=== PATIENT | male | born 1950 | race Caucasian/White ===

== ENCOUNTER 2023-08-11 08:45 | Observation (INO) | payer MEDICARE, MEDICAID ==
[~2023-08-11] VITALS: Ht 170.2 cm; Wt 82.6 kg
[2023-08-11 09:12] VITALS: BP 183/100; PULSE 85; RESP 18; TEMP 99; O2SAT 96
[2023-08-11 09:30] VITALS: O2SAT 96
[2023-08-11 09:44] LABS: BASOPHILS # (AUTO) 0.1 K/uL (0.00-0.22); EOSINOPHILS # (AUTO) 0.1 K/uL (0-0.4); EOSINOPHILS % (AUTO) 1.9 % (0.0-4.0); HEMATOCRIT 36.7 % (36-52); HEMOGLOBIN 11.9 g/dL (12.0-18.0); LYMPHOCYTES # (AUTO) 1.1 K/uL (2.0-11.5); LYMPHOCYTES % (AUTO) 16.8 % (20.5-51.1); MEAN CORPUSCULAR HEMOGLOBIN 25 pg (27-31); MEAN CORPUSCULAR HGB CONC 33 g/dL (33-37); MEAN CORPUSCULAR VOLUME 76.5 fL (80-94); MONOCYTES # (AUTO) 0.4 K/uL (0.8-1.0); MONOCYTES % (AUTO) 6.2 % (1.7-9.3); NEUTROPHILS # (AUTO) 4.8 K/uL (1.8-7.7); NEUTROPHILS % (AUTO) 74.1 % (42.2-75.2); PLATELET COUNT (AUTO) 266 K/uL (140-450); RED BLOOD CELL COUNT(AUTO) 4.79 MIL/uL (4.20-6.10); RED CELL DISTRIBUTION WIDTH 16.2 % (11.6-13.7); WHITE BLOOD COUNT (AUTO) 6.5 K/uL (4.8-10.8)
[2023-08-11 09:58] LABS: INR 0.94 (0.8-1.2); PARTIAL THROMBOPLASTIN TIME 28.5 secs (22-35.6); PROTHROMBIN TIME 9.9 secs (10.8-13.4)
[2023-08-11 09:59] LABS: ALANINE AMINOTRANSFERASE 16 U/L (12-78); ALBUMIN 3.2 g/dL (3.4-5.0); ALKALINE PHOSPHATASE 90 U/L (50-136); ANION GAP 15.1 (8-16); ASPARTATE AMINOTRANSFERASE 10 U/L (15-37); CALCIUM 8.7 mg/dL (8.5-10.1); CHLORIDE 103 mmol/L (98-107); GLUCOSE 99 mg/dL (74-106); POTASSIUM 4.1 mmol/L (3.5-5.1); SODIUM SERUM 137 mmol/L (136-145); TOTAL BILIRUBIN 0.4 mg/dL (0.0-1.0); TOTAL PROTEIN, SERUM 7.8 g/dL (6.4-8.2); UREA NITROGEN, BLOOD 34 mg/dL (7-18)
[2023-08-11] MEDS ORDERED: TRAM50TA3 PO (13:22)
[2023-08-11] MEDS ORDERED: ACET-9533 PO (13:22)
[2023-08-11] MEDS ORDERED: CLOP75TA55 PO (13:22)
[2023-08-11] MEDS ORDERED: ISOS60TE70 PO (13:22)
[2023-08-11] MEDS ORDERED: ATOR40TA40 PO (13:22)
[2023-08-11] MEDS ORDERED: TAMS0.4C97 PO (13:22)
[2023-08-11] MEDS ORDERED: MULT-1469 PO (13:22)
[2023-08-11] MEDS ORDERED: MEGE40SU5 PO (13:22)
[2023-08-11] MEDS ORDERED: AMOX500T3 PO (13:22)
[2023-08-11] MEDS ORDERED: TRAM-748 PO (13:22)
[2023-08-11] MEDS ORDERED: LOSA50TA57 PO (13:22)
[2023-08-11] MEDS ORDERED: POTASSIUM CHLORIDE 10 MEQ TABER PO PRN (15:45)
[2023-08-11] MEDS ORDERED: MAG SULF 2000 MG/WATER PREMIX 50 ML IV PRN ×2 (15:45→15:58)
[2023-08-11] MEDS ORDERED: ONDANSETRON 4 MG/2 ML VIAL IVP PRN (15:45)
[2023-08-11] MEDS ORDERED: ACETAMINOPHEN 325 MG TAB PO PRN (15:45)
[2023-08-11] MEDS ORDERED: HYDROcodone/APAP 5/325 MG 1 TAB TAB PO PRN (15:45)
[2023-08-11] MEDS ORDERED: MAGNESIUM OXIDE 400 MG TAB PO PRN (15:45)
[2023-08-11] MEDS ORDERED: KCL 20 MEQ IN 100 mL PREMIX 200 ML IV PRN (15:45)
[2023-08-11 22:59] VITALS: PULSE 66
[2023-08-11 23:00] VITALS: BP 155/90; PULSE 65; RESP 18; TEMP 98.1; O2SAT 96
[2023-08-12] VITALS (8 sets, daily range): BP systolic 152–190; BP diastolic 82–97; PULSE 39–81; RESP 18–19; TEMP 96.5–98; O2SAT 96–100
[2023-08-12 06:56] LABS: BASOPHILS % (AUTO) 0.6 % (0.0-2.0); EOSINOPHILS # (AUTO) 0.2 K/uL (0-0.4); HEMATOCRIT 38.2 % (36-52); HEMOGLOBIN 12.4 g/dL (12.0-18.0); LYMPHOCYTES # (AUTO) 1.8 K/uL (2.0-11.5); LYMPHOCYTES % (AUTO) 24.3 % (20.5-51.1); MEAN CORPUSCULAR HEMOGLOBIN 25 pg (27-31); MEAN CORPUSCULAR HGB CONC 32 g/dL (33-37); MEAN CORPUSCULAR VOLUME 75.7 fL (80-94); MONOCYTES # (AUTO) 0.5 K/uL (0.8-1.0); MONOCYTES % (AUTO) 7.3 % (1.7-9.3); NEUTROPHILS # (AUTO) 4.7 K/uL (1.8-7.7); NEUTROPHILS % (AUTO) 64.8 % (42.2-75.2); PLATELET COUNT (AUTO) 285 K/uL (140-450); RED BLOOD CELL COUNT(AUTO) 5.05 MIL/uL (4.20-6.10); RED CELL DISTRIBUTION WIDTH 16.3 % (11.6-13.7); WHITE BLOOD COUNT (AUTO) 7.3 K/uL (4.8-10.8)
[2023-08-12 07:38] LABS: ALANINE AMINOTRANSFERASE 12 U/L (12-78); ALBUMIN 3.1 g/dL (3.4-5.0); ALKALINE PHOSPHATASE 94 U/L (50-136); ANION GAP 15.5 (8-16); ASPARTATE AMINOTRANSFERASE 10 U/L (15-37); CALCIUM 8.7 mg/dL (8.5-10.1); CARBON DIOXIDE 21.5 mmol/L (21-32); CHLORIDE 104 mmol/L (98-107); GLUCOSE 84 mg/dL (74-106); SODIUM SERUM 137 mmol/L (136-145); TOTAL BILIRUBIN 0.5 mg/dL (0.0-1.0); TOTAL PROTEIN, SERUM 7.9 g/dL (6.4-8.2); UREA NITROGEN, BLOOD 37 mg/dL (7-18)
[2023-08-12] MEDS: DOCUSATE SODIUM 100 MG GELCAP PO SCH (08:47)
[2023-08-12] MEDS: hydrALAZINE 20 MG/ML VIAL IVP PRN (12:05)
[2023-08-13] VITALS: BP 137/91; PULSE 60; PULSE 72; RESP 18; TEMP 97.9; O2SAT 97
[2023-08-13 04:00] VITALS: BP 144/84; PULSE 67; PULSE 70; RESP 18; TEMP 97.3; O2SAT 99
[2023-08-13 07:05] LABS: BASOPHILS # (AUTO) 0.1 K/uL (0.00-0.22); BASOPHILS % (AUTO) 0.8 % (0.0-2.0); EOSINOPHILS # (AUTO) 0.2 K/uL (0-0.4); EOSINOPHILS % (AUTO) 2.9 % (0.0-4.0); HEMATOCRIT 39.5 % (36-52); HEMOGLOBIN 12.9 g/dL (12.0-18.0); LYMPHOCYTES # (AUTO) 1.9 K/uL (2.0-11.5); LYMPHOCYTES % (AUTO) 26.1 % (20.5-51.1); MEAN CORPUSCULAR HEMOGLOBIN 25 pg (27-31); MEAN CORPUSCULAR HGB CONC 33 g/dL (33-37); MEAN CORPUSCULAR VOLUME 75.4 fL (80-94); MONOCYTES # (AUTO) 0.6 K/uL (0.8-1.0); MONOCYTES % (AUTO) 8.1 % (1.7-9.3); NEUTROPHILS # (AUTO) 4.6 K/uL (1.8-7.7); NEUTROPHILS % (AUTO) 62.1 % (42.2-75.2); PLATELET COUNT (AUTO) 279 K/uL (140-450); RED BLOOD CELL COUNT(AUTO) 5.24 MIL/uL (4.20-6.10); RED CELL DISTRIBUTION WIDTH 15.5 % (11.6-13.7); WHITE BLOOD COUNT (AUTO) 7.4 K/uL (4.8-10.8)
[2023-08-13 07:22] LABS: ALANINE AMINOTRANSFERASE 14 U/L (12-78); ALBUMIN 3.1 g/dL (3.4-5.0); ALKALINE PHOSPHATASE 95 U/L (50-136); ANION GAP 14.9 (8-16); ASPARTATE AMINOTRANSFERASE 6 U/L (15-37); CALCIUM 8.9 mg/dL (8.5-10.1); CARBON DIOXIDE 23.7 mmol/L (21-32); CHLORIDE 103 mmol/L (98-107); GLUCOSE 88 mg/dL (74-106); MAGNESIUM 2.6 mg/dL (1.8-2.4); POTASSIUM 4.6 mmol/L (3.5-5.1); SODIUM SERUM 137 mmol/L (136-145); TOTAL BILIRUBIN 0.4 mg/dL (0.0-1.0); TOTAL PROTEIN, SERUM 8.1 g/dL (6.4-8.2); UREA NITROGEN, BLOOD 40 mg/dL (7-18)
[2023-08-13 07:49] LABS: CREATININE 4.2 mg/dL (0.6-1.3)
[2023-08-13 08:00] VITALS: BP 177/95; PULSE 63; PULSE 65; PULSE 70; RESP 18; TEMP 96.9; O2SAT 96
[2023-08-13] MEDS: MORPHINE SULFATE 4 MG/ML SYR IVP PRN (08:21)
[2023-08-13] MEDS: LIDOCAINE 1% 500 MG/50 ML VIAL ONE (09:25)
[2023-08-13] MEDS: BUPIVACAINE-MPF 0.25% 30 ML VIAL INJ ONE (09:25)
[2023-08-13] MEDS: fentaNYL citrate 0.05 MG/ML VIAL ONE (09:26)
[2023-08-13] MEDS: PROPOFOL 200 MG/20 ML VIAL IV ONE ×2 (09:29→09:44)
[2023-08-13] MEDS: ceFAZolin 1,000 MG VIAL ONE ×2 (09:44)
[2023-08-13 12:00] VITALS: BP 175/88; PULSE 66; PULSE 91; RESP 18; TEMP 97.1; O2SAT 98
[2023-08-13 16:00] VITALS: BP 106/65; PULSE 94; PULSE 95; RESP 18; TEMP 96.9; O2SAT 96
== END 2023-08-13 19:06 | disposition home or self-care (01) ==
LOC: MED 08:45 → MMU 16:17 → MTU 20:42
PROVIDERS: ADMIT Hospitalist; ATTEND Hospitalist
DX: T82.41XA Breakdown (mechanical) of vascular dialysis catheter, initial encounter (principal); I12.0 Hypertensive chronic kidney disease with stage 5 chronic kidney disease or end stage renal disease; N18.6 End stage renal disease; E87.70 Fluid overload, unspecified; E78.5 Hyperlipidemia, unspecified; I25.10 Atherosclerotic heart disease of native coronary artery without angina pectoris; R09.89 Other specified symptoms and signs involving the circulatory and respiratory systems; N40.0 Benign prostatic hyperplasia without lower urinary tract symptoms; Z99.2 Dependence on renal dialysis; Y84.1 Kidney dialysis as the cause of abnormal reaction of the patient, or of later complication, without mention of misadventure at the time of the procedure
CPT/HCPCS: 36415; 36581; 71045; 77001; 80053; 83735; 83880; 85025; 85610; 85730; 87081; 93005; 96372; 96374; 96375; 96376; 97116; 97163; 99285; C1750; G0378; J0360; J0690; J1644; J2001; J2270; J2704; J3010; J7030; 90935; G0257; J3490